=== PATIENT | male | born 1990 | race Caucasian/White ===

== ENCOUNTER 2019-12-06 21:54 | Emergency (ER) | payer OTHER ==
[~2019-12-06] VITALS: Ht 185.4 cm; Wt 79.9 kg
[2019-12-06 22:05] VITALS: Ht 185.4 cm; Wt 79.9 kg
[2019-12-07 00:38] VITALS: BP 113/69
== END 2019-12-07 00:38 | disposition home or self-care (01) ==
LOC: ED 21:54
DX: S20.219A Contusion of unspecified front wall of thorax, initial encounter (principal); V49.49XA Driver injured in collision with other motor vehicles in traffic accident, initial encounter; Y93.I9 Activity, other involving external motion; Y92.413 State road as the place of occurrence of the external cause; Y99.8 Other external cause status
CPT/HCPCS: 36415; J1885

== ENCOUNTER 2019-12-09 20:53 | Emergency (ER) | payer OTHER ==
[~2019-12-09] VITALS: Ht 182.9 cm; Wt 79.8 kg
[2019-12-09 21:00] VITALS: Ht 182.9 cm; Wt 79.8 kg
[2019-12-09 21:59] VITALS: BP 147/88
== END 2019-12-09 21:59 | disposition home or self-care (01) ==
LOC: ED 20:53
DX: S39.012A Strain of muscle, fascia and tendon of lower back, initial encounter (principal); S29.9XXA Unspecified injury of thorax, initial encounter; V49.49XA Driver injured in collision with other motor vehicles in traffic accident, initial encounter; Y93.I9 Activity, other involving external motion; Y92.488 Other paved roadways as the place of occurrence of the external cause; Y99.8 Other external cause status

== ENCOUNTER 2019-12-13 10:43 | Emergency (ER) | payer OTHER ==
[~2019-12-13] VITALS: Ht 182.9 cm; Wt 78.0 kg
[2019-12-13 11:00] VITALS: Ht 182.9 cm; Wt 78.0 kg
[2019-12-13 12:28] VITALS: BP 123/83
== END 2019-12-13 12:28 | disposition home or self-care (01) ==
LOC: ED 10:43
DX: M54.5 Low back pain (principal); R07.89 Other chest pain

== ENCOUNTER 2019-12-19 11:55 | Emergency (ER) | payer OTHER ==
[~2019-12-19] VITALS: Ht 185.4 cm; Wt 80.3 kg
[2019-12-19 13:23] VITALS: BP 115/72; Ht 185.4 cm; Wt 80.3 kg
== END 2019-12-19 13:42 | disposition left against medical advice (07) ==
LOC: ED 11:55
DX: Z53.21 Procedure and treatment not carried out due to patient leaving prior to being seen by health care provider (principal)